=== PATIENT | female | born 1950 | race Two or more races ===

== ENCOUNTER 2022-05-27 15:37 | Emergency (ER) | payer OTHER ==
[~2022-05-27] VITALS: Ht 154.9 cm; Wt 68.1 kg
[2022-05-27 15:38] VITALS: BP 135/57
[2022-05-27] MEDS ORDERED: CLIN300C8 PO (16:59)
== END 2022-05-27 17:20 | disposition home or self-care (01) ==
LOC: ER 15:37
DX: T21.22XA Burn of second degree of abdominal wall, initial encounter (principal); E03.9 Hypothyroidism, unspecified; Z90.49 Acquired absence of other specified parts of digestive tract; Z79.2 Long term (current) use of antibiotics; Z88.0 Allergy status to penicillin; X12.XXXA Contact with other hot fluids, initial encounter; Y93.89 Activity, other specified; Y92.89 Other specified places as the place of occurrence of the external cause; Y99.8 Other external cause status